=== PATIENT | female | born 1980 | race Caucasian/White ===

== ENCOUNTER 2016-12-11 10:42 | Emergency (ER) | payer BC, OTHER ==
[2016-12-11 10:49] VITALS: BP 130/85
[2016-12-11 12:10] LABS: Hematocrit 42 % (35-47); Hemoglobin 14.1 g/dl (12.0-16.0); Mean Corpuscular HGB Conc 33 g/dl (31-36); Mean Corpuscular Hemoglobin 30 pg (27-31); Mean Corpuscular Volume 89 fL (80-97); Mean Platelet Volume 8 um3 (7.4-10.4); Red Blood Count 4.78 10^6/ul (4.0-5.4); Red Cell Distribution Width 13 % (10.5-15); White Blood Count 7.4 10^3/ul (3.5-10.8)
[2016-12-11 12:29] LABS: Albumin 4.4 g/dL (3.2-5.2); BUN/Creatinine Ratio 13.5 (8-20); C Reactive Protein 1.65 mg/L (< 5.00); Calcium 8.9 mg/dL (8.6-10.3); EGFR African American 114.9 (>60); EGFR Non-African American 89.3 (>60); Globulin 2.7 g/dL (2-4); Potassium 4.3 mmol/L (3.5-5.0); Total Bilirubin 0.6 mg/dL (0.2-1.0); Total Protein 7.1 g/dL (6.4-8.9)
[2016-12-11] MEDS ORDERED: Iohexol 300* (CONTRAST) 10 ML SDV IV ONE (12:53)
--- NOTE | 2016-12-11 13:54 | RAD ---
indication: Left-sided facial pain and numbness COMPARISON: None A CT scan of the maxillofacial bones was performed without intravenous contrast enhancement. Contiguous axial sections were obtained from the level of the hyoid bone to just above the frontal sinuses. Findings: There is mild asymmetric enlargement of the left parotid gland relative to the right with the left parotid gland measuring 2.4 x 4.1 cm in the axial plane compared to 1.7 x 2.2 on the right. There is no significant inflammatory change including enhancement of the gland or induration of the overlying and neighboring subcutaneous fat. There is no left-sided cervical chain lymphadenopathy. Bones: There is no displaced fracture or dislocation. The orbital rim is intact. Bilaterally the nasal bones are intact. The zygomatic arch is intact. The pterygoid plates are intact. Orbits: The globes are round. The optic nerves are symmetric. The extraocular musculature is normal. There is no post septal or intraconal inflammatory change. There is no retrobulbar hematoma. Paranasal Sinuses: The paranasal sinuses are clear. Visualized brain: The limited views of the brain do not demonstrate any acute abnormality or extra-axial hemorrhage. IMPRESSION: Mild asymmetric enlargement of the left parotid gland relative to the right could be seen in the setting of parotiditis. There is no drainable fluid collection or left-sided lymphadenopathy.
--- NOTE | 2016-12-11 14:18 | ED ---
Throat Pain/Nasal Congestion - HPI Summary HPI Summary: Two days ago the patient went to [facility] with a left sided neck pain and ear pressure. She was treated for neck pain with good relief, but the ear pressure continued. Patient is referred from [facility] for left sided ear pressure and swelling over the left TMJ. She denies known injury and does not have a fever, ear drainage, dental or jaw pain. Food does not make the pressure better or worse, but she says it feels like the pressure one can get when blowing a balloon up. - History of Current Complaint Chief Complaint: EDEarPain Time Seen by Provider: 12/11/16 11:19 Hx Obtained From: Patient, Family/Pharmacy Innovation Assistant Onset/Duration: Gradual Onset Severity: Moderate Associated Signs And Symptoms: Positive: Negative Cough: None - Allergies/Home Medications Allergies/Adverse Reactions: Allergies Allergy/AdvReac Type Severity Reaction Status Date / Time Sulfa Drugs Allergy Severe Anaphylatic Verified 09/11/14 21:40 Shock PMH/Surg Hx/FS Hx/Imm Hx Previously Healthy: Yes Endocrine/Hematology History: Denies: Hx Diabetes, Hx Thyroid Disease Cardiovascular History: Denies: Hx Hypertension Respiratory History: Denies: Hx Asthma, Hx Chronic Obstructive Pulmonary Disease (COPD) GI History: Denies: Hx Ulcer Musculoskeletal History: Denies: Hx Scoliosis Psychiatric History: Denies: Hx Eating Disorder, Hx of Violent Episodes Against Others - Surgical History Surgery Procedure, Year, and Place: Left great toe, Right thumb, transplanted nailbed from toe to finger 1999. Infectious Disease History: Denies: Hx Hepatitis, Hx Human Immunodeficiency Virus (HIV), Traveled Outside the [place] in Last 30 Days - Family History Known Family History: Positive: None - Social History Occupation: Employed Full-time Lives: With Family Alcohol Use: Daily Alcohol Amount: approx 6 beers Substance Use Type: Reports: Cocaine, Marijuana Substance Use Comment - Amount & Last Used: last used yesterday Smoking Status (MU): Heavy Every Day Tobacco Smoker Cessation Counseling: Patient Advised to Stop Review of Systems Negative: Fever, Chills Positive: Ear Ache. Negative: Dental Pain, Sore Throat, Nasal Discharge Negative: Cough Negative: Headache All Other Systems Reviewed And Are Negative: Yes Physical Exam Triage Information Reviewed: Yes Vital Signs On Initial Exam: Initial Vitals Temp Pulse Resp BP Pulse Ox 98.6 F 90 14 130/85 99 12/11/16 10:45 12/11/16 10:45 12/11/16 10:45 12/11/16 10:45 12/11/16 10:45 Vital Signs Reviewed: Yes Appearance: Positive: Well-Appearing, No Pain Distress, Well-Nourished Skin: Positive: Warm, Skin Color Reflects Adequate Perfusion, Dry, Soft Head/Face: Positive: Normal Head/Face Inspection Eyes: Positive: EOMI, YASMEEN, Conjunctiva Clear ENT: Positive: Hearing grossly normal, Pharynx normal, TMs normal. Negative: Trismus, Muffled/hoarse voice Dental: Negative: Percussion Tenderness @, Gross Decay/Caries @, Cervical Lymphadenopathy Neck: Positive: Supple, Tenderness @ - TTP over the left preauricular nodes, Enlarged Nodes @ Respiratory/Lung Sounds: Positive: Breath Sounds Present Cardiovascular: Positive: RRR Musculoskeletal: Negative: Edema Left, Edema Right Neurological: Positive: Sensory/Motor Intact, Alert, Oriented to Person Place, Time, [place] Bundle Intact Distally, Normal Gait Psychiatric: Positive: Affect/Mood Appropriate AVPU Assessment: Alert Diagnostics - Vital Signs Vital Signs Temp Pulse Resp BP Pulse Ox 12/11/16 10:45 98.6 F 90 14 130/85 99 - Laboratory Lab Results: Lab Results 12/11/16 12/11/16 Range/Units 12:02 12:02 WBC 7.4 (3.5-10.8) 10^3/ul RBC 4.78 (4.0-5.4) 10^6/ul Hgb 14.1 (12.0-16.0) g/dl Hct 42 (35-47) % MCV 89 (80-97) fL MCH 30 (27-31) pg MCHC 33 (31-36) g/dl RDW 13 (10.5-15) % Plt Count 221 (150-450) 10^3/ul MPV 8 (7.4-10.4) um3 Neut % (Auto) 62.4 (38-83) % Lymph % (Auto) 24.0 L (25-47) % [place] % (Auto) 8.2 (1-9) % Eos % (Auto) 4.4 (0-6) % Baso % (Auto) 1.0 (0-2) % Absolute Neuts (auto) 4.6 (1.5-7.7) 10^3/ul Absolute Lymphs (auto) 1.8 (1.0-4.8) 10^3/ul Absolute Monos (auto) 0.6 (0-0.8) 10^3/ul Absolute Eos (auto) 0.3 (0-0.6) 10^3/ul Absolute Basos (auto) 0.1 (0-0.2) 10^3/ul Absolute Nucleated RBC 0 10^3/ul Nucleated RBC % 0 Sodium 136 (133-145) mmol/L Potassium 4.3 (3.5-5.0) mmol/L Chloride 105 (101-111) mmol/L Carbon Dioxide 26 (22-32) mmol/L Anion Gap 5 (2-11) mmol/L BUN 10 (6-24) mg/dL Creatinine 0.74 (0.51-0.95) mg/dL Est GFR ( Amer) 114.9 (>60) Est GFR (Non-Af Amer) 89.3 (>60) BUN/Creatinine Ratio 13.5 (8-20) Glucose 91 (70-100) mg/dL Calcium 8.9 (8.6-10.3) mg/dL Total Bilirubin 0.60 (0.2-1.0) mg/dL AST 15 (13-39) U/L ALT 10 (7-52) U/L Alkaline Phosphatase 41 (34-104) U/L C-Reactive Protein 1.65 (< 5.00) mg/L Total Protein 7.1 (6.4-8.9) g/dL Albumin 4.4 (3.2-5.2) g/dL Globulin 2.7 (2-4) g/dL Albumin/Globulin Ratio 1.6 (1-3) Result Diagrams: 12/11/16 12:02 12/11/16 12:02 Lab Statement: Any lab studies that have been ordered have been reviewed, and results considered in the medical decision making process. - CT No standard instances CT Interpretation: No Acute Changes CT Interpretation Completed By: Radiologist EENT Course/Dx - Differential Diagnoses Differential Diagnoses: Cellulitis, Cerumen Impaction, Dental Abscess, Dental Caries, Foreign Body, Vitaly's Angina, Mastoiditis, Odontogenic Pain, Otitis Externa, Otitis Media, Pain of Unknown Etiology, Perforated TM, Periodontic Abscess, Periodontic Disease - Diagnoses Provider Diagnoses: Swelling of left side of face Discharge - Discharge Plan Condition: Stable Disposition: HOME Forms: *Work Release Referrals: Juice Hernandez MD [Primary Care Provider] - Additional Instructions: Please use naproxen for pain and swelling. Call Dr. Hernandez's office in the morning for an appointment later in the week for evaluation. Return to the emergency department if symptoms worsen.
== END 2016-12-11 14:12 | disposition home or self-care (01) ==
LOC: ED 10:42
DX: R60.0 Localized edema (principal); M54.2 Cervicalgia; H92.09 Otalgia, unspecified ear; F17.210 Nicotine dependence, cigarettes, uncomplicated
CPT/HCPCS: 36415; 70487; 80053; 85025; 86140; 99282; Q9967

== ENCOUNTER 2017-01-31 16:07 | Emergency (ER) | payer BC ==
[2017-01-31] MEDS ORDERED: methylPREDNISolone 125 MG* 2 ML VIAL IM ONE (16:26)
--- NOTE | 2017-01-31 16:26 | UC ---
Back Pain HPI - HPI Summary HPI Summary: 36 YEAR OLD FEMALE WITH A HISTORY OF HERNIATED DISCS PRESENTS WITH COMPLAINS OF LEFT SIDED BACK PAIN. - History of Current Complaint Chief Complaint: UCBackPain Stated Complaint: BACK PAIN Time Seen by Provider: 01/31/17 16:22 Hx Last Menstrual Period: middle of december - Allergies/Home Medications Allergies/Adverse Reactions: Allergies Allergy/AdvReac Type Severity Reaction Status Date / Time Sulfa Drugs Allergy Severe Anaphylatic Verified 09/11/14 21:40 Shock Home Medications: Home Medications Gabapentin CAP(*) [Neurontin 300 CAP(*)] 1 cap PO BEDTIME PRN 01/31/17 [History Confirmed 01/31/17] Naproxen [Naproxen 500 mg] 1 tab PO PRN 01/31/17 [History] Tizanidine HCl [Zanaflex] 1 tab PO Q4HR PRN 01/31/17 [History Confirmed 01/31/17 ] PMH/Surg Hx/FS Hx/Imm Hx Previously Healthy: Yes - Surgical History Surgical History: Yes Surgery Procedure, Year, and Place: Left great toe, Right thumb, transplanted nailbed from toe to finger 1999. - Family History Known Family History: Positive: None - Social History Alcohol Use: Weekly Alcohol Amount: approx 6 beers Substance Use Type: None Substance Use Comment - Amount & Last Used: last used yesterday Smoking Status (MU): Heavy Every Day Tobacco Smoker Type: Cigarettes Amount Used/How Often: 1/2 ppd Length of Time of Smoking/Using Tobacco: 15 years Review of Systems Constitutional: Negative Skin: Negative Eyes: Negative ENT: Negative Respiratory: Negative Cardiovascular: Negative Gastrointestinal: Negative Genitourinary: Negative Motor: Negative Neurovascular: Negative Musculoskeletal: Myalgia, Other: - LEFT SIDED BACK PAIN Neurological: Negative Psychological: Negative All Other Systems Reviewed And Are Negative: Yes Physical Exam Triage Information Reviewed: Yes Vital Signs: Initial Vital Signs Temp 37.5 C 01/31/17 16:11 Pulse 97 01/31/17 16:11 Resp 18 01/31/17 16:11 BP 141/79 01/31/17 16:11 Pulse Ox 99 01/31/17 16:11 Eye Exam: Normal ENT Exam: Normal Dental Exam: Normal Neck exam: Normal Neck: Positive: 1 Respiratory Exam: Normal Cardiovascular Exam: Normal Abdominal Exam: Normal Musculoskeletal: Positive: Other: - LEFTT SIDED BACK PAIN Neurological Exam: Normal Psychological Exam: Normal Skin Exam: Normal Back Pain Course/Dx - Differential Dx/Diagnosis Provider Diagnoses: LEFT SIDED BACK PAIN. LEFT SI JOINT PAIN Discharge - Discharge Plan Condition: Stable Disposition: HOME Prescriptions: Carisoprodol TAB* [Soma TAB*] 350 mg PO TID PRN #30 tab MDD 3 PRN Reason: Spasms - Back Methylprednisolone [Medrol Dosepak 4 MG*] 4 mg PO .SEE EAN INSTRUCTION #21 tab Patient Education Materials: Sacroiliitis (ED), Back Pain (ED), Lower Back Exercises (ED) Referrals: Juice Hernandez MD [Primary Care Provider] -
[2017-01-31 16:28] VITALS: BP 141/79
== END 2017-01-31 16:48 | disposition home or self-care (01) ==
LOC: UCEAST 16:07
DX: M54.9 Dorsalgia, unspecified (principal); M53.3 Sacrococcygeal disorders, not elsewhere classified; Z88.2 Allergy status to sulfonamides; F17.210 Nicotine dependence, cigarettes, uncomplicated
CPT/HCPCS: 96372; 99212; G0463; J2930

== ENCOUNTER 2018-02-23 14:46 | Emergency (ER) | payer SELFPAY ==
[2018-02-23 15:01] VITALS: BP 118/84
--- NOTE | 2018-02-23 15:59 | UC ---
Respiratory Complaint HPI - HPI Summary HPI Summary: worsening cough, and chest congestion past 2-3 days--sputum is worse in the morning---body aches subjective fever, chest hurts to cough - History of Current Complaint Chief Complaint: UCRespiratory Stated Complaint: ACHES, AND COUGH Time Seen by Provider: 02/23/18 15:52 Hx Obtained From: Patient Hx Last Menstrual Period: 01/22/18 ?: No Onset/Duration: Sudden Onset, Lasting Days - 2-3 days, Still Present Timing: Constant Pain Intensity: 5 Pain Scale Used: 0-10 Numeric Character: Cough: Productive Alleviating Factors: Nothing Associated Signs And Symptoms: Positive: Dyspnea, Fever, Chills, Pleuritic Chest Pain, Wheezing - Allergies/Home Medications Allergies/Adverse Reactions: Allergies Allergy/AdvReac Type Severity Reaction Status Date / Time Sulfa (Sulfonamide Allergy Anaphylatic Verified 02/23/18 15:01 Antibiotics) Shock Home Medications: Home Medications Nyquil 1 02/23/18 [History] PMH/Surg Hx/FS Hx/Imm Hx Previously Healthy: Yes - Surgical History Surgical History: Yes Surgery Procedure, Year, and Place: Left great toe, Right thumb, transplanted nailbed from toe to finger 1999. 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 Lives: With Family Alcohol Use: Daily Alcohol Amount: approx 6 beers Substance Use Type: None Substance Use Comment - Amount & Last Used: last used yesterday Smoking Status (MU): Heavy Every Day Tobacco Smoker Type: Cigarettes Amount Used/How Often: 1/2 ppd Length of Time of Smoking/Using Tobacco: 15 years Review of Systems Constitutional: Negative Skin: Negative Eyes: Negative ENT: Negative Respiratory: Cough Cardiovascular: Chest Pain - pleurtic Gastrointestinal: Negative Genitourinary: Negative Motor: Negative Neurovascular: Negative Musculoskeletal: Arthralgia, Myalgia Neurological: Negative Psychological: Negative Is Patient Immunocompromised?: No All Other Systems Reviewed And Are Negative: Yes Physical Exam Triage Information Reviewed: Yes Appearance: Well-Nourished, Ill-Appearing - mild, Pain Distress - mild Vital Signs: Initial Vital Signs Temp 98 F 02/23/18 14:56 Pulse 74 02/23/18 14:56 Resp 18 02/23/18 14:56 BP 118/84 02/23/18 14:56 Pulse Ox 100 02/23/18 14:56 Vital Signs Reviewed: Yes Eye Exam: Normal Eyes: Positive: Conjunctiva Clear ENT Exam: Normal ENT: Positive: Normal ENT inspection, Hearing grossly normal, Pharynx normal, TMs normal, Uvula midline. Negative: Nasal congestion, Tonsillar swelling, Trismus, Muffled voice, Hoarse voice, Dental tenderness, Sinus tenderness Dental Exam: Normal Neck exam: Normal Neck: Positive: Supple, Nontender Respiratory Exam: Normal Respiratory: Positive: Chest non-tender, No respiratory distress, No accessory muscle use, Wheezing Cardiovascular Exam: Normal Cardiovascular: Positive: RRR, No Murmur, Pulses Normal, Brisk Capillary Refill Musculoskeletal Exam: Normal Musculoskeletal: Positive: Strength Intact, ROM Intact, No Edema Neurological Exam: Normal Neurological: Positive: Alert, Muscle Tone Normal Psychological Exam: Normal Skin Exam: Normal UC Diagnostic Evaluation - Laboratory O2 Sat by Pulse Oximetry: 100 Respiratory Course/Dx - Course Course Of Treatment: nicotine cesasation information, albuterol, ibuprofen increase fluids and rest may start zithromax if symptoms fail to improve. follow with pcp - Differential Dx/Diagnosis Provider Diagnoses: nicotine dependant, acute bronchitis, alcohol misuse Discharge - Sign-Out/Discharge Documenting (check all that apply): Patient Departure All imaging exams completed and their final reports reviewed: No Studies - Discharge Plan Condition: Stable Disposition: HOME Prescriptions: Albuterol HFA INHALER* [Ventolin HFA Inhaler*] 2 puff INH Q4H PRN #1 mdi PRN Reason: cough Azithromycin TAB* [Zithromax TAB (Z-EAN) 250 mg #6 tabs] 2 tab PO .TODAY, THEN 1 DAILY #1 ean Ibuprofen TAB* [Motrin TAB* 600 MG] 600 mg PO Q6H PRN #40 tab PRN Reason: Pain Patient Education Materials: How to Stop Smoking (ED), Acute Bronchitis (ED), How to Use a Metered-Dose Inhaler and a Spacer (ED) Referrals: Juice Hernandez MD [Primary Care Provider] - If Needed - Billing Disposition and Condition Condition: STABLE Disposition: Home
== END 2018-02-23 16:13 | disposition home or self-care (01) ==
LOC: UCEAST 14:46
DX: J20.9 Acute bronchitis, unspecified (principal); F17.210 Nicotine dependence, cigarettes, uncomplicated; F10.10 Alcohol abuse, uncomplicated
CPT/HCPCS: 99212; G0463

== ENCOUNTER 2019-05-12 16:47 | Emergency (ER) | payer SELFPAY ==
[2019-05-12] MEDS ORDERED: LORazepam INJ* 2 MG/ML 1 ML VIAL IM ONE (17:03)
[2019-05-12] MEDS ORDERED: Haloperidol INJ IV/IM* 5 MG/ML AMP IM ONE (17:03)
[2019-05-12] MEDS ORDERED: diPHENhydraMINE IV* 50 MG/ML 1 ml VIAL (BENADRYL) IM ONE (17:03)
[2019-05-12] MEDS ORDERED: LORazepam INJ* 2 MG/ML 1 ML VIAL ONE ×2 (17:06→17:15)
[2019-05-12] MEDS ORDERED: Haloperidol INJ IV/IM* 5 MG/ML AMP ONE (17:15)
[2019-05-12] MEDS ORDERED: diPHENhydraMINE IV* 50 MG/ML 1 ml VIAL (BENADRYL) ONE (17:15)
[2019-05-12 18:11] LABS: Urine Bacteria Absent (Absent); Urine Color Colorless; Urine Red Blood Cell Absent (Absent); Urine Squamous Epithelial Cell Present (Absent); Urine White Blood Cell Absent (Absent)
[2019-05-12 18:12] LABS: Urine Appearance Clear; Urine Bilirubin Negative (Negative); Urine Blood Negative (Negative); Urine Glucose Negative (Negative); Urine Ketones Negative (Negative); Urine Nitrite Negative (Negative); Urine Protein Negative (Negative); Urine Urobilinogen Negative (Negative)
[2019-05-12 18:27] LABS: ABS Basophils 0.1 10^3/ul (0-0.2); ABS Eosinophils 0.1 10^3/ul (0-0.6); ABS Lymphocytes 2.3 10^3/ul (1.0-4.8); ABS Monocytes 0.5 10^3/ul (0-0.8); ABS Neutrophils 5.8 10^3/ul (1.5-7.7); Eosinophil % 1.6 %; Hematocrit 43 % (35-47); Hemoglobin 14.6 g/dL (12.0-16.0); Lymphocyte % 26.4 %; Mean Corpuscular HGB Conc 34 g/dL (31-36); Mean Corpuscular Hemoglobin 32 pg (27-31); Mean Corpuscular Volume 92 fL (80-97); Mean Platelet Volume 7.1 fL (7.4-10.4); Nucleated Red Blood Cells % 0.1; Platelet Count 244 10^3/uL (150-450); Red Blood Count 4.63 10^6 /uL (3.70-4.87); Red Cell Distribution Width 12 % (10-15); White Blood Count 8.8 10^3/uL (3.5-10.8)
[2019-05-12 18:37] LABS: Urine Benzodiazepine Screen None Detected (None Detect); Urine Opiates Screen None Detected (None Detect)
[2019-05-12 18:45] LABS: ALT 15 U/L (7-52); AST 21 U/L (13-39); Albumin 4.2 g/dL (3.2-5.2); Albumin/Globulin Ratio 1.6 (1-3); Alkaline Phosphatase 55 U/L (34-104); Anion Gap 8 mmol/L (2-11); BUN/Creatinine Ratio 6.8 (8-20); Blood Urea Nitrogen 4 mg/dL (6-24); CO2 Carbon Dioxide 25 mmol/L (22-32); Calcium 8.6 mg/dL (8.6-10.3); Chloride 108 mmol/L (101-111); EGFR African American 138.8 (>60); EGFR Non-African American 114.7 (>60); Globulin 2.6 g/dL (2-4); Glucose 92 mg/dL (70-100); Potassium 3.3 mmol/L (3.5-5.0); Sodium 141 mmol/L (135-145); Total Protein 6.8 g/dL (6.4-8.9)
[2019-05-12 19:23] LABS: Acetaminophen < 15 mcg/mL; Alcohol 220 mg/dL (<10); Salicylate < 2.50 mg/dL (<30)
[2019-05-12 19:39] LABS: TSH (Thyroid Stimulating Horm) 1.64 mcIU/mL (0.34-5.60)
--- NOTE | 2019-05-12 20:54 | ED ---
Psychiatric Complaint - HPI Summary HPI Summary: Ms. Max was brought in by the police under the 941. Her friends report that she has been on a binge drinking episode for about 5 days and that today she threatened to kill herself and left the house. They called police and the police found the patient at a local store obviously intoxicated. - History Of Current Complaint Chief Complaint: EDSuicidal Time Seen by Provider: 05/12/19 17:01 Hx Obtained From: Patient, Other: - [employer] Hx From Patient Unobtainable Due To: Altered Mental Status Hx Last Menstrual Period: 01/22/18 Onset/Duration: Gradual Onset Timing: Constant Severity Initially: Moderate Severity Currently: Moderate Character: Depressed, Fearful Aggravating Factor(s): Alcohol Use Alleviating Factor(s): Nothing Associated Signs And Symptoms: Positive: Hostile Related History: Positive For: Prior Psychiatric Issues, Admissions Related To Substance Abuse Has Suicidal: Reports: Thoughts, With A Plan - Allergies/Home Medications Allergies/Adverse Reactions: Allergies Allergy/AdvReac Type Severity Reaction Status Date / Time Sulfa (Sulfonamide Allergy Anaphylatic Verified 05/12/19 17:00 Antibiotics) Shock PMH/Surg Hx/FS Hx/Imm Hx Previously Healthy: Yes Endocrine/Hematology History: Denies: Hx Diabetes, Hx Thyroid Disease Cardiovascular History: Denies: Hx Hypertension Respiratory History: Denies: Hx Asthma, Hx Chronic Obstructive Pulmonary Disease (COPD) GI History: Denies: Hx Ulcer Musculoskeletal History: Denies: Hx Scoliosis Psychiatric History: Denies: Hx Eating Disorder, Hx of Violent Episodes Against Others - Surgical History Surgery Procedure, Year, and Place: Left great toe, Right thumb, transplanted nailbed from toe to finger 1999. Infectious Disease History: No Infectious Disease History: Denies: Hx Clostridium Difficile, Hx Hepatitis, Hx Human Immunodeficiency Virus (HIV), Hx of Known/Suspected MRSA, Hx Shingles, Hx Tuberculosis, Hx Known/ Suspected VRE, Hx Known/Suspected VRSA, History Other Infectious Disease, Traveled Outside the [place] in Last 30 Days - Family History Known Family History: Positive: None - Social History Alcohol Use: Daily Alcohol Amount: approx 6 beers Substance Use Type: Reports: None Substance Use Comment - Amount & Last Used: last used yesterday Smoking Status (MU): Heavy Every Day Tobacco Smoker Type: Cigarettes Amount Used/How Often: 1/2 ppd Length of Time of Smoking/Using Tobacco: 15 years Review of Systems All Other Systems Reviewed And Are Negative: Yes - Comments Additional Review of Systems Comments: The patient is uncooperative for review of systems. Physical Exam - Summary Physical Exam Summary: She was nontoxic in appearance with stable vitals. She has alcohol on her breath. She moves all extremities well and there is no sign of trauma. Triage Information Reviewed: Yes Vital Signs On Initial Exam: Initial Vitals Temp Pulse Resp BP Pulse Ox 97.9 F 91 19 179/121 98 05/12/19 16:56 05/12/19 16:56 05/12/19 16:56 05/12/19 16:56 05/12/19 16:56 Vital Signs Reviewed: Yes Appearance: Positive: Well-Appearing Skin: Positive: Warm, Skin Color Reflects Adequate Perfusion, Dry Eyes: Positive: Normal ENT: Positive: Normal ENT inspection Respiratory/Lung Sounds: Positive: Clear to Auscultation Cardiovascular: Positive: Normal Abdomen Description: Positive: Nontender Musculoskeletal: Positive: Normal Neurological: Positive: Normal Procedures - Sedation Patient Received Moderate/Deep Sedation with Procedure: No Diagnostics - Vital Signs Vital Signs Temp Pulse Resp BP Pulse Ox 05/12/19 19:12 78 94 05/12/19 18:41 79 16 93 05/12/19 17:23 20 05/12/19 16:56 97.9 F 91 19 179/121 98 - Laboratory Lab Results: Lab Results 05/12/19 05/12/19 05/12/19 Range/Units 16:55 16:55 18:22 WBC 8.8 (3.5-10.8) 10^3/uL RBC 4.63 (3.70-4.87) 10^6 /uL Hgb 14.6 (12.0-16.0) g/dL Hct 43 (35-47) % MCV 92 (80-97) fL MCH 32 H (27-31) pg MCHC 34 (31-36) g/dL RDW 12 (10-15) % Plt Count 244 (150-450) 10^3/uL MPV 7.1 L (7.4-10.4) fL Neut % (Auto) 65.8 % Lymph % (Auto) 26.4 % [place] % (Auto) 5.3 % Eos % (Auto) 1.6 % Baso % (Auto) 0.9 % Absolute Neuts (auto) 5.8 (1.5-7.7) 10^3/ul Absolute Lymphs (auto) 2.3 (1.0-4.8) 10^3/ul Absolute Monos (auto) 0.5 (0-0.8) 10^3/ul Absolute Eos (auto) 0.1 (0-0.6) 10^3/ul Absolute Basos (auto) 0.1 (0-0.2) 10^3/ul Absolute Nucleated RBC 0.0 10^3/ul Nucleated RBC % 0.1 Sodium (135-145) mmol/L Potassium (3.5-5.0) mmol/L Chloride (101-111) mmol/L Carbon Dioxide (22-32) mmol/L Anion Gap (2-11) mmol/L BUN (6-24) mg/dL Creatinine (0.51-0.95) mg/dL Est GFR ( Amer) (>60) Est GFR (Non-Af Amer) (>60) BUN/Creatinine Ratio (8-20) Glucose (70-100) mg/dL Calcium (8.6-10.3) mg/dL Total Bilirubin (0.2-1.0) mg/dL AST (13-39) U/L ALT (7-52) U/L Alkaline Phosphatase (34-104) U/L Total Protein (6.4-8.9) g/dL Albumin (3.2-5.2) g/dL Globulin (2-4) g/dL Albumin/Globulin Ratio (1-3) TSH (0.34-5.60) mcIU/mL Urine Color Colorless Urine Appearance Clear Urine pH 5 (5-9) Ur Specific [place] 1.000 L (1.010-1.030) Urine Protein Negative (Negative) Urine Ketones Negative (Negative) Urine Blood Negative (Negative) Urine Nitrate Negative (Negative) Urine Bilirubin Negative (Negative) Urine Urobilinogen Negative (Negative) Ur Leukocyte Esterase Negative (Negative) Urine WBC (Auto) Absent (Absent) Urine RBC (Auto) Absent (Absent) Ur Squamous Epith Cells Present A (Absent) Urine Bacteria Absent (Absent) Urine Glucose Negative (Negative) Urine Ascorbic Acid Pending Salicylates (<30) mg/dL Urine Opiates Screen None detected (None Detect) Acetaminophen mcg/mL Ur Barbiturates Screen None detected (None Detect) Ur Phencyclidine Scrn None detected (None Detect) Ur Amphetamines Screen None detected (None Detect) U Benzodiazepines Scrn None detected (None Detect) Urine Cocaine Screen None detected (None Detect) U Cannabinoids Screen None detected (None Detect) Serum Alcohol (<10) mg/dL 05/12/19 Range/Units 18:22 WBC (3.5-10.8) 10^3/uL RBC (3.70-4.87) 10^6 /uL Hgb (12.0-16.0) g/dL Hct (35-47) % MCV (80-97) fL MCH (27-31) pg MCHC (31-36) g/dL RDW (10-15) % Plt Count (150-450) 10^3/uL MPV (7.4-10.4) fL Neut % (Auto) % Lymph % (Auto) % Ector % (Auto) % Eos % (Auto) % Baso % (Auto) % Absolute Neuts (auto) (1.5-7.7) 10^3/ul Absolute Lymphs (auto) (1.0-4.8) 10^3/ul Absolute Monos (auto) (0-0.8) 10^3/ul Absolute Eos (auto) (0-0.6) 10^3/ul Absolute Basos (auto) (0-0.2) 10^3/ul Absolute Nucleated RBC 10^3/ul Nucleated RBC % Sodium 141 (135-145) mmol/L Potassium 3.3 L (3.5-5.0) mmol/L Chloride 108 (101-111) mmol/L Carbon Dioxide 25 (22-32) mmol/L Anion Gap 8 (2-11) mmol/L BUN 4 L (6-24) mg/dL Creatinine 0.59 (0.51-0.95) mg/dL Est GFR ( Amer) 138.8 (>60) Est GFR (Non-Af Amer) 114.7 (>60) BUN/Creatinine Ratio 6.8 L (8-20) Glucose 92 (70-100) mg/dL Calcium 8.6 (8.6-10.3) mg/dL Total Bilirubin 0.50 (0.2-1.0) mg/dL AST 21 (13-39) U/L ALT 15 (7-52) U/L Alkaline Phosphatase 55 (34-104) U/L Total Protein 6.8 (6.4-8.9) g/dL Albumin 4.2 (3.2-5.2) g/dL Globulin 2.6 (2-4) g/dL Albumin/Globulin Ratio 1.6 (1-3) TSH 1.64 (0.34-5.60) mcIU/mL Urine Color Urine Appearance Urine pH (5-9) Ur Specific [place] (1.010-1.030) Urine Protein (Negative) Urine Ketones (Negative) Urine Blood (Negative) Urine Nitrate (Negative) Urine Bilirubin (Negative) Urine Urobilinogen (Negative) Ur Leukocyte Esterase (Negative) Urine WBC (Auto) (Absent) Urine RBC (Auto) (Absent) Ur Squamous Epith Cells (Absent) Urine Bacteria (Absent) Urine Glucose (Negative) Urine Ascorbic Acid Salicylates < 2.50 (<30) mg/dL Urine Opiates Screen (None Detect) Acetaminophen < 15 mcg/mL Ur Barbiturates Screen (None Detect) Ur Phencyclidine Scrn (None Detect) Ur Amphetamines Screen (None Detect) U Benzodiazepines Scrn (None Detect) Urine Cocaine Screen (None Detect) U Cannabinoids Screen (None Detect) Serum Alcohol 220 H (<10) mg/dL Result Diagrams: 05/12/19 18:22 05/12/19 18:22 Lab Statement: Any lab studies that have been ordered have been reviewed, and results considered in the medical decision making process. Course/Dx - Course Course Of Treatment: The police brought her in to the emergency department where she was clearly upset and uncooperative. She requested a shot to help her sleep and was given a B-52. She then went to sleep and is currently still sleeping in stable condition. Blood alcohol was 220 at 1822 and she should be sober by 2300. At that time she will be medically cleared for mental health eval. - Differential Dx/Clinical Impression Provider Diagnosis: Alcohol intoxication Discharge ED - Sign-Out/Discharge Documenting (check all that apply): Sign-Out Patient Signing out patient TO: Kassy Al - Discharge Plan Condition: Stable Referrals: Juice Hernandez MD [Primary Care Provider] - - Billing Disposition and Condition Condition: STABLE
--- NOTE | 2019-05-12 22:00 | ED ---
Progress - Progress Note Progress Note: This pt is a sign out to Dr. Al from Dr. Meza pending medical clearance for a MHE and disposition. Re-Evaluation - Re-Evaluation First Eval Re-Evaluation Time: 04:48 Change: Improved Comment: Pt is medically cleared for a MHE. Second eval Re-Evaluation Time: 09:10 Change: Unchanged Comment: At 09:10, patient was moved to the annex. Course/Dx - Course Course Of Treatment: This pt is a sign out to Dr. Al from Dr. Meza at 2200 19 pending medical clearance for a MHE and disposition. This pt is a sign out from Dr. Al to Dr. Meza at shift change 0700 pending a MHE and disposition. - Diagnoses Provider Diagnoses: Alcohol intoxication, Disorder due to alcohol abuse Discharge ED - Sign-Out/Discharge Documenting (check all that apply): Sign-Out Patient, Receiving Sign-Out Signing out patient TO: Cuauhtemoc Sullivan Receiving patient FROM: Tomy Meza - Discharge Plan Condition: Stable Disposition: HOME Prescriptions: hydrOXYzine HCL TAB* [Atarax 10 MG TAB*] 10 mg PO TID PRN #28 tab PRN Reason: Anxiety Patient Education Materials: Mood Disorders (ED) Referrals: Juice Hernandez MD [Primary Care Provider] - - Billing Disposition and Condition Condition: STABLE Disposition: Home - Attestation Statements Document Initiated by Scribe: Yes Documenting Scribe: Mono Stallings Provider For Whom Scribe is Documenting (Include Credential): Kassy Al MD Scribe Attestation: IMono, scribed for Kassy Al MD on 05/13/19 at 1935. Scribe Documentation Reviewed: Yes Provider Attestation: The documentation as recorded by the Mono bautista accurately reflects the service I personally performed and the decisions made by me, Kassy Al MD Status of Scribe Document: Viewed Procedures - Sedation Patient Received Moderate/Deep Sedation with Procedure: No
--- NOTE | 2019-05-13 07:00 | PN ---
ED Psychiatric Progress Note Date of Service: 05/12/19 Subjective: This is a 38 year-old F who is pending admission to [facility] / transfer to another psychiatric facility / discharge to home / or being observed secondary to ETOH and SI. Pt. examined in room 7 at 0700. Sleeping comfortably. Objective: Vitals: Most recent vital signs documented below. General NAD Laboratory: Current laboratory results documented below. Assessment: Depression. ETOH use. Plan: Pending MHE. Vital Signs Temp Pulse Resp BP Pulse Ox 97.9 F 81 16 135/71 90 05/12/19 16:56 05/13/19 00:43 05/12/19 18:41 05/13/19 00:43 05/13/19 00:43 Lab Results - Entire Visit 05/12/19 05/12/19 05/12/19 18:22 18:22 16:55 WBC 8.8 RBC 4.63 Hgb 14.6 Hct 43 MCV 92 MCH 32 H MCHC 34 RDW 12 Plt Count 244 MPV 7.1 L Neut % (Auto) 65.8 Lymph % (Auto) 26.4 [place] % (Auto) 5.3 Eos % (Auto) 1.6 Baso % (Auto) 0.9 Absolute Neuts (auto) 5.8 Absolute Lymphs (auto) 2.3 Absolute Monos (auto) 0.5 Absolute Eos (auto) 0.1 Absolute Basos (auto) 0.1 Absolute Nucleated RBC 0.0 Nucleated RBC % 0.1 Sodium 141 Potassium 3.3 L Chloride 108 Carbon Dioxide 25 Anion Gap 8 BUN 4 L Creatinine 0.59 Est GFR ( Amer) 138.8 Est GFR (Non-Af Amer) 114.7 BUN/Creatinine Ratio 6.8 L Glucose 92 Calcium 8.6 Total Bilirubin 0.50 AST 21 ALT 15 Alkaline Phosphatase 55 Total Protein 6.8 Albumin 4.2 Globulin 2.6 Albumin/Globulin Ratio 1.6 TSH 1.64 Urine Color Urine Appearance Urine pH Ur Specific [place] Urine Protein Urine Ketones Urine Blood Urine Nitrate Urine Bilirubin Urine Urobilinogen Ur Leukocyte Esterase Urine WBC (Auto) Urine RBC (Auto) Ur Squamous Epith Cells Urine Bacteria Urine Glucose Salicylates < 2.50 Urine Opiates Screen None detected Acetaminophen < 15 Ur Barbiturates Screen None detected Ur Phencyclidine Scrn None detected Ur Amphetamines Screen None detected U Benzodiazepines Scrn None detected Urine Cocaine Screen None detected U Cannabinoids Screen None detected Serum Alcohol 220 H 05/12/19 16:55 WBC RBC Hgb Hct MCV MCH MCHC RDW Plt Count MPV Neut % (Auto) Lymph % (Auto) [place] % (Auto) Eos % (Auto) Baso % (Auto) Absolute Neuts (auto) Absolute Lymphs (auto) Absolute Monos (auto) Absolute Eos (auto) Absolute Basos (auto) Absolute Nucleated RBC Nucleated RBC % Sodium Potassium Chloride Carbon Dioxide Anion Gap BUN Creatinine Est GFR ( Amer) Est GFR (Non-Af Amer) BUN/Creatinine Ratio Glucose Calcium Total Bilirubin AST ALT Alkaline Phosphatase Total Protein Albumin Globulin Albumin/Globulin Ratio TSH Urine Color Colorless Urine Appearance Clear Urine pH 5 Ur Specific [place] 1.000 L Urine Protein Negative Urine Ketones Negative Urine Blood Negative Urine Nitrate Negative Urine Bilirubin Negative Urine Urobilinogen Negative Ur Leukocyte Esterase Negative Urine WBC (Auto) Absent Urine RBC (Auto) Absent Ur Squamous Epith Cells Present A Urine Bacteria Absent Urine Glucose Negative Salicylates Urine Opiates Screen Acetaminophen Ur Barbiturates Screen Ur Phencyclidine Scrn Ur Amphetamines Screen U Benzodiazepines Scrn Urine Cocaine Screen U Cannabinoids Screen Serum Alcohol
--- NOTE | 2019-05-13 07:20 | ED ---
Progress - Progress Note Progress Note: Patient is a sign-out at 07:00 on 05/13/[address] Kassy Al MD to Dr. Cuauhtemoc Sullivan MD at shift change, pending evaluation and disposition. At 09:10, patient was moved to the annex. At 11:05, linting machine operator reports that the patient's case was reviewed by Dr. Wilber Estrada who will discharge the patient with a diagnosis of alcohol abuse disorder. At 11:36, linting machine operator reports that Dr. Wilber Estrada recommends the patient's prescription for Hydroxizine 10 mg for 7 days be ordered. - Consult/PCP Time Called: 11:05 Re-Evaluation - Re-Evaluation First Eval Re-Evaluation Time: 04:48 Change: Improved Comment: Pt is medically cleared for a MHE. Second eval Re-Evaluation Time: 09:10 Change: Unchanged Comment: At 09:10, patient was moved to the annex. Course/Dx - Course Course Of Treatment: This patient was signed out by Dr. Al at shift change. Dr. Al medically cleared the patient. She reports that the patient is a 38- year-old female with alcohol intoxication and suicidal ideation. The patient is medically cleared and awaiting for mental health evaluation. Dr. Estrada assessed the patient and he recommends for the patient to be discharged home with a follow-up with her primary care physician. Diagnosis is alcohol abuse disorder. The patient is hemodynamically stable alert and oriented 3. - Diagnoses Provider Diagnoses: Alcohol intoxication, Disorder due to alcohol abuse - Provider Notifications Discussed Care Of Patient With: Wilber Estrada - At 11:05, linting machine operator reports that the patient's case was reviewed by Dr. Wilber Estrada who will discharge the patient with a diagnosis of alcohol abuse disorder. At 11:36, linting machine operator reports that Dr. Wilber Estrada recommends the patient's prescription for Hydroxizine 10 mg for 7 days be ordered. Time Discussed With Above Provider: 11:05 Discharge ED - Sign-Out/Discharge Documenting (check all that apply): Patient Departure - Discharge, Receiving Sign-Out Receiving patient FROM: Kassy Al - Patient is a sign-out at 07:[address] Kassy Al MD to Dr. Cuauhtemoc Sullivan MD at shift change, pending evaluation and disposition. - Discharge Plan Condition: Stable Disposition: HOME Prescriptions: hydrOXYzine HCL TAB* [Atarax 10 MG TAB*] 10 mg PO TID PRN #28 tab PRN Reason: Anxiety Patient Education Materials: Mood Disorders (ED) Referrals: Juice Hernandez MD [Primary Care Provider] - - Billing Disposition and Condition Condition: STABLE Disposition: Home - Attestation Statements Document Initiated by Scribe: Yes Documenting Scribe: Mandie Hernandes Provider For Whom Andiibe is Documenting (Include Credential): Cuauhtemoc Sullivan MD Scribe Attestation: Mandie Mack, scribed for Cuauhtemoc Sullivan MD on 05/13/19 at 1752. Scribe Documentation Reviewed: Yes Provider Attestation: The documentation as recorded by the Mandie bautista accurately reflects the service I personally performed and the decisions made by , Cuauhtemoc Sullivan MD Status of Scribe Document: Viewed
[2019-05-13 10:56] VITALS: BP 140/90
== END 2019-05-13 11:39 | disposition home or self-care (01) ==
LOC: ED 16:47
DX: A41.9 Sepsis, unspecified organism (principal); R27.8 Other lack of coordination; Z86.73 Personal history of transient ischemic attack (TIA), and cerebral infarction without residual deficits; N18.9 Chronic kidney disease, unspecified; Z99.2 Dependence on renal dialysis; R60.9 Edema, unspecified; Z79.899 Other long term (current) drug therapy; Z79.01 Long term (current) use of anticoagulants; E10.9 Type 1 diabetes mellitus without complications; Z79.4 Long term (current) use of insulin; E78.00 Pure hypercholesterolemia, unspecified; I10 Essential (primary) hypertension; Z86.711 Personal history of pulmonary embolism; R50.9 Fever, unspecified
CPT/HCPCS: 36415; 80053; 80307; 80320; 80329; 81003; 84443; 85025; 96372; 99283; G0480; J1200; J1630; J2060